=== PATIENT | female | born 1985 | race Caucasian/White ===

== ENCOUNTER 2023-01-15 14:30 | Outpatient (RCR) | payer BC, MEDICAID, SELFPAY ==
--- NOTE | 2023-01-04 11:45 | OT.OPOE ---
OT Outpatient Ortho Eval OT Outpatient Ortho Eval Start: 01/04/23 10:08 Freq: Status: Active Protocol: Document 01/04/23 10:08 JEN (Rec: 01/04/23 10:33 LCN [id number]) E-signed By Kelsey Briones, OTR/L, CLT OT OP Ortho Eval Details Type Type Eval Complexity Low Insurance Information Insurance Information Medicaid Insurance Information Comments [employer]BS Outpatient History/Precautions Current Condition/Medical Diagnosis Referring Provider Callie Weber Treatment Diagnosis L elbow pain Date of Onset 12/08/22 Medical Conditions Depression Other Conditions Pt treated for R shoulder pain with radiculopathy 218 w PT December to May 2018. Had WC injury to R elbow/ladder fell off wall and struck arm at work. 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 Hands cramp B with sustained gripping ( for groceries, laundry, carrying large bags of salt, dog food). Sees Dr. Nelda Madison [place] for cervicogenic headaches, gets them 2-3x/week . Pain Assessment Pain Present Pain Present Pain Reported Location L elbow Description Tightness,Dull, Achy,Throbbing ,Cramping,Pulling,With Movement,Heaviness Intensity 4 Goniometric Comments Goniometric Comments Goniometric Comments AROM WNL for all SH, EL, wrist and forearm planes. Can Dryer pos 1 is 90# R and 58# L ( no pain, just shaky, weak) Pos 2 is 90# R and 50 # L ( 7/ 10 pn at deep olecranon, [facility], [facility] areas). Niño pinch 21# R and 19# L. 3 pt is 19# B, no pain. Trial of compression counterpressure cuff with gripping did not reduce pain w Pos 2/L ue. MMT 5/5 for SH EL, FA and wrist planes, but has 3-4/10 pn at [facility] during resisted WE and RD. Resisted supination pulls deep to olecranon 3-4/10 pressure. Edema Assessment Additional Information Comments Spongy pad of fibrosis at medial L elbow, triceps; thick , tender at axillary border of L scapula, radiates tingling to RF/SF OT Objective Data Hand Hand Dominance Right Upper Extremity Special Tests Elbow Cozens Test Negative Right,Positive Left Wrist Durkan's Test Negative Left,Negative Right Upper Extremity Special Tests Comments Comments compression at EL FL and carpal space (-). Tinel's negative at ECRB, ulnar groove , CT. (+, pulling at medial elbow, tingling at L RF/SF) with pos sx during 1,3,5,6 positions of ulnar nerve glides. OT Problems Problems Problems Decreased Strength,Decreased Range of Motion,Decreased Fine Motor,Lifting,Gripping, Pinching Problems Comments Leans on L elbow/table top during conversation and sleep on stomach with elbows flexed. Other Problems Opening Containers,Computer, Fasteners Patient Potential Excellent Assessment Assessment Assessment Given Germaine's struggle with L medial elbow pain with signs of ulnar nerve compression with edema/tissue changes and strength loss of L hand/wrist, she would benefit from skilled OT to address these areas. Occupational Therapy Treatment Plan - OP Potential Rehabilitation Potential Excellent Goals Goals In 8 weeks, Germaine will demonstrate:? 1) Decreased pn to <2/10 80% of the time with sustained gripping, carrying groceries, using yard tools and weeding. 2) I HEP for stretching, gradual strengthening and self mgmt strategies. 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 4)??Pt to be fit with functional bracing (for night elbow compression/nerve protection) and use adaptive strategies to protect joint integrity to support less pain with ADL. Treatment Plan Treatment Plan Evaluation,Iontophoresis,Joint Mobilization,Manual Therapy, Splinting,Ultrasound, Therapeutic Activities,Self- Care/Home Management,Education Expected Frequency 1-2x Week Expected Duration 6-8 Weeks Certification Certification I Certify That: Therapy Services Provided, Therapy Plan Established, Therapy Plan Reviewed Recertification Information Recertification Information Initial Certification Date 01/04/23 Recertification Due Date 04/04/23 Provider Signature Shows Agreement With POC & Medical Necessity Physician Comment/Change Comment or Changes Physician NPI Number #
== END 2023-05-15 23:59 | disposition home or self-care (01) ==
PROVIDERS: PCP Family Medicine; Visit Provider Family Medicine
DX: M25.522 Pain in left elbow (principal); Z51.89 Encounter for other specified aftercare
CPT/HCPCS: 97035; 97140; 97165; 97535